=== PATIENT | female | born 1990 | race Caucasian/White ===

== ENCOUNTER 2018-01-13 12:01 | Emergency (ER) | payer MEDICAID ==
[2018-01-13 14:11] LABS: APPEARANCE,URINE SLIGHTLY-CLOUDY; BILIRUBIN,URINE NEGATIVE (NEGATIVE); COLOR,URINE YELLOW; GLUCOSE, URINE NEGATIVE (NEGATIVE); KETONES,URINE NEGATIVE (NEGATIVE); LEUKOCYTE ESTERASE,URINE MODERATE (NEGATIVE); NITRITE,URINE NEGATIVE (NEGATIVE); PROTEIN,URINE NEGATIVE (NEGATIVE); URINE SPECIFIC GRAVITY 1.015; UROBILINOGEN,URINE NEGATIVE mg/dL (<2.0)
--- NOTE | 2018-01-13 14:18 | ER Document Report ---
ED Medical Screen (RME) - General Chief Complaint: Vag Bleeding, +preg <12wks Stated Complaint: ABDOMINAL PAIN Time Seen by Provider: 01/13/18 12:18 Mode of Arrival: Ambulatory Information source: Patient Notes: 27-year-old female presents with complaint of one episode of vaginal bleeding. Patient states that 5 days ago she had a positive home test. Her last menstrual period was November 26, 2017. Patient has not had abdominal pain and currently states her bleeding has stopped. 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 I have greeted and performed a rapid initial assessment of this patient. A comprehensive ED assessment and evaluation of the patient, analysis of test results and completion of medical decision making process we will be contacted by additional ED providers. PHYSICAL EXAMINATION: GENERAL: Well-appearing, well-nourished and in no acute distress. HEAD: Atraumatic, normocephalic. EYES: Pupils equal round extraocular movements intact, conjunctiva are normal. ENT: Nares patent NECK: Normal range of motion LUNGS: No respiratory distress Musculoskeletal: Normal range of motion NEUROLOGICAL: Normal speech, normal gait. PSYCH: Normal mood, normal affect. SKIN: Warm, Dry, normal turgor, no rashes or lesions noted. TRAVEL OUTSIDE OF THE U[place] IN LAST 30 DAYS: No - HPI Onset: Yesterday Onset/Duration: Sudden, Gone Quality of pain: Cramping Severity: Mild Associated Symptoms: denies: Nausea Exacerbated by: Denies Relieved by: Denies Similar symptoms previously: No Recently seen / treated by doctor: No - Related Data Allergies/Adverse Reactions: amoxicillin Allergy (Intermediate, Verified 01/13/18 13:13) Hives Past Medical History - General Last Menstrual Period: 11/26/2017 - Social History Chew tobacco use (# tins/day): No Frequency of alcohol use: None Drug Abuse: None Renal/ Medical History: Denies: Hx Peritoneal Dialysis Physical Exam - Vital signs Vitals: Temp Pulse Resp BP Pulse Ox 98.7 F 71 16 141/69 H 100 01/13/18 12:28 01/13/18 12:28 01/13/18 12:28 01/13/18 12:28 01/13/18 12:28 Course - Vital Signs Vital signs: Temp Pulse Resp BP Pulse Ox 98.7 F 71 16 141/69 H 100 01/13/18 12:28 01/13/18 12:28 01/13/18 12:28 01/13/18 12:28 01/13/18 12:28 - Laboratory Laboratory results interpreted by me: 01/13/18 13:25 Urine Blood MODERATE H Ur Leukocyte Esterase MODERATE H Urine HCG, Qual POSITIVE H Doctor's Discharge - Discharge Referrals: CONVERSION,MAP [Primary Care Provider] - Follow up as needed
--- NOTE | 2018-01-13 14:35 | ER Document Report ---
ED General - General Chief Complaint: Vag Bleeding, +preg <12wks Stated Complaint: ABDOMINAL PAIN Time Seen by Provider: 01/13/18 12:18 Mode of Arrival: Ambulatory TRAVEL OUTSIDE OF THE [place] IN LAST 30 DAYS: No - HPI Notes: 27-year-old female at approximately 6 weeks gestation presents with an episode of vaginal bleeding yesterday. She was at work and suddenly felt a "gush of blood." She noticed about one quarter size blood clot. She does not believe it was enough to fill a pad. She has continued to have some brown discharge since that time. Denies any further bright red bleeding. Has intermittent cramping for the past few months, worse on the right. Has nausea without vomiting. Has not yet seen OB for this . No fevers or chills. No pain with urination. - Related Data Allergies/Adverse Reactions: amoxicillin Allergy (Intermediate, Verified 01/13/18 13:13) Hives Past Medical History - General Information source: Patient Last Menstrual Period: 11/26/2017 - Social History Smoking Status: Never Smoker Chew tobacco use (# tins/day): No Frequency of alcohol use: None Drug Abuse: None Family History: Reviewed & Not Pertinent Patient has suicidal ideation: No Patient has homicidal ideation: No Renal/ Medical History: Denies: Hx Peritoneal Dialysis Review of Systems - Review of Systems Notes: Constitutional: Negative for fever. HENT: Negative for sore throat. Eyes: Negative for visual changes. Cardiovascular: Negative for chest pain. Respiratory: Negative for shortness of breath. Gastrointestinal: Positive for abdominal pain and nausea, negative for vomiting or diarrhea. Genitourinary: Negative for dysuria. Positive for vaginal bleeding and discharge Musculoskeletal: Negative for back pain. Skin: Negative for rash. Neurological: Negative for headaches, weakness or numbness. 10 point ROS negative except as marked above and in HPI. Physical Exam - Vital signs Vitals: Temp Pulse Resp BP Pulse Ox 98.7 F 71 16 141/69 H 100 01/13/18 12:28 01/13/18 12:28 01/13/18 12:28 01/13/18 12:28 01/13/18 12:28 - Notes Notes: PHYSICAL EXAMINATION: GENERAL: Well-appearing, well-nourished and in no acute distress. HEAD: Atraumatic, normocephalic. EYES: Pupils equal round and reactive to light, extraocular movements intact, conjunctiva are normal. ENT: nares patent, oropharynx clear without exudates. Moist mucous membranes. NECK: Normal range of motion, supple without lymphadenopathy LUNGS: Breath sounds clear to auscultation bilaterally and equal. No wheezes rales or rhonchi. HEART: Regular rate and rhythm, no chest wall tenderness ABDOMEN: Soft, nontender, normoactive bowel sounds. No guarding, no rebound. No masses appreciated. : small amount of brown discharge in vaginal vault. Normal-appearing closed cervix without cervical motion tenderness EXTREMITIES: Normal range of motion, no pitting or edema. No cyanosis. NEUROLOGICAL: Cranial nerves grossly intact. Normal speech, normal gait. Normal sensory and motor exams. PSYCH: Normal mood, normal affect. SKIN: Warm, Dry, normal turgor, no rashes or lesions noted. Course - Re-evaluation Re-evalutation: 01/13/18 14:34 Pelvic ultrasound, type and screen, and quantitative hCG ordered. Pelvic swab sent. 01/13/18 15:34 4+ bacteria with white blood cells noted on wet prep. Will cover for bacterial vaginosis. Patient reports hives to amoxicillin. Given Zithromax for possible GC/Chlam. 01/13/18 16:38 Zithromax canceled as GC chlamydia came back negative. Still awaiting hCG and type and screen. Ultrasound shows gestational sac without evidence of pole. 01/13/18 18:33 Patient has remained comfortable with stable vital signs. HCG 9530. Blood type A+. Discussed with patient that we cannot rule out ectopic as only a gestational sac was seen on ultrasound. Discussed importance of repeat hCG and ultrasound in 48 hours to determine if there is an intrauterine present versus miscarriage versus ectopic. Given strict return precautions in the interim. Given information for the women's clinic to follow-up or to come back to the emergency department. Patient expressed understanding. At this time will discharge with return precautions and follow-up recommendations. Verbal discharge instructions given a the bedside and opportunity for questions given. Medication warnings reviewed. Patient is in agreement with this plan and has verbalized understanding of return precautions and the need for primary care follow-up in the next 24-72 hours. - Vital Signs Vital signs: Temp Pulse Resp BP Pulse Ox 98.7 F 71 16 141/69 H 100 01/13/18 12:28 01/13/18 12:28 01/13/18 12:28 01/13/18 12:28 01/13/18 12:28 - Laboratory Laboratory results interpreted by me: 01/13/18 01/13/18 13:25 17:04 Beta HCG, Quant 9530.60 H Urine Blood MODERATE H Ur Leukocyte Esterase MODERATE H Urine HCG, Qual POSITIVE H Discharge - Discharge Clinical Impression: Threatened miscarriage in early , Bacterial vaginosis Condition: Good Disposition: HOME, SELF-CARE Additional Instructions: It is impossible for us to determine if you have a viable , an early miscarriage, or possibly a tubal at this time. You must either follow -up with the women's clinic or the emergency department in 48 hours for repeat hCG level and ultrasound. You must return sooner if you have any severe pain, increased bleeding, passing out, or other concerns. Continue vitamins. Take Flagyl for bacterial vaginosis. : You are . care is best started as early in as possible. If you're unsure about continuing this , you should discuss this with your physician or with visitor use assistant at [facility]. You should take only medications approved by your physician. Acetaminophen can safely be taken for minor pains. As a rule, medication for chronic conditions such as asthma or seizures can safely be continued. You should discuss with the physician every medicine you take. Any regular exercise program can be continued. Talk to your physician, however, before engaging in competitive or demanding sports. Alcohol, smoking, and "street drugs" are dangerous to your baby. Cocaine is especially dangerous. Don't use any illicit drugs! BLEEDING DURING EARLY : You have been evaluated for passing blood while . While we take this symptom very seriously, most women with your degree of bleeding will go on to have a perfectly normal baby. At this time, there is no indication that a miscarriage will occur. (A miscarriage occurs when the fetus is abnormal. There is no medicine or treatment to prevent it.) A more serious cause of bleeding is tubal (or ectopic) . An ultrasound usually can show whether the is in the uterus or in the tube. Sometimes in early , no fetus is seen. In this case, careful follow-up, including repeat blood tests and repeat ultrasound, is necessary. Do not douche or have sex for at least a week, or until OK'd by the doctor. Don't use tampons. Call the doctor or return for re-examination if there is an increase in bleeding or cramping, extreme weakness, fainting, new abdominal pain, fever, or passage of tissue. THREATENED MISCARRIAGE: You have been evaluated for a possible miscarriage. At this time, there is no indication that a miscarriage will occur. Most women with your symptoms will go on to have a perfectly normal baby. However, careful observation will be necessary. A miscarriage occurs when the fetus is abnormal. There is no medicine or treatment for it. You should rest in bed until the symptoms have resolved. Do not douche or have sex for at least a week, or until OK'd by the doctor. Call the doctor or return for re-examination if there is an increase in bleeding or cramping, or passage of tissue. REPEAT BLOOD TEST: At this time, it is uncertain if you have a viable . During the first three months of , the hormone produced from the placenta will steadily rise, usually doubling in value every 2 - 3 days. In order to determine if your is viable and likely be succesful, a repeat of this blood test for the hormone is recommended in 2 - 3 days. An order for this test to be done as an outpatient is being provided. After you have this repeat test done, call your doctor or call us for the results. If the value of the test is increasing as would be expected in a normal , then your is likely to be ok. However, if the value of the test is declining, it will suggest something has happened with your and it will not likely be a successful . FOLLOW-UP CARE: If you have been referred to a physician for follow-up care, call the physician s office for an appointment as you were instructed or within the next two days. If you experience worsening or a significant change in your symptoms (very heavy bleeding with large clots of blood, passage of tissue, more severe abdominal / pelvic pain or cramping, feeling faint or severe weakness, fever, etc.), notify the physician immediately or return to the Emergency Department at any time for re-evaluation. OBSTETRIC-GYNECOLOGIC (OB-TEACHER OF THE HEARING IMPAIRED) PHYSICIANS IN [place]: [facility] [address] [place], [place] [phone] [facility] [address] [place] [address] [phone] For active duty and dependents diagnosed with a threatened or miscarriage, you should follow up in the following manner: Standard patients who have a local civilian provider should follow up with that provider. Patients of the Family Practice Clinic should call your Team Nurse at 8: 00 am the following morning for further instructions. If you are neither a Standard patient nor a patient of the Family Practice Clinic, you should follow up at the [facility] ([facility]) . Patients already enrolled in the [facility] OB Clinic, Prime patients not assigned to the Family Practice Clinic, and Active Duty patients not assigned to Family Practice Clinic should report to the [facility] Lab at 8:00 am the next morning that the [facility] is open and then you will be seen in the OB Clinic at 11:00 am. Prescriptions: Metronidazole [Flagyl 500 mg Tablet] 500 mg PO BID 7 Days #28 tablet Referrals: CONVERSION,MAP [CONVERSION] - Follow up as needed LO JAVED MD [ACTIVE STAFF] - 01/15/18
[2018-01-13 14:57] LABS: BACTERIA (WET MOUNT) 4+ BACTERIA SEEN; EPITHELIALS (WET MOUNT) 4+ EPITHELIALS SEEN; T.VAGINALIS (WET MOUNT) NO TRICHOMONAS SEEN; WBCS (WET MOUNT) 2+ WBCS SEEN; YEAST (WET MOUNT) NO YEAST SEEN
[2018-01-13] MEDS ORDERED: AZITHROMYCIN 250 MG TABLET PO ONE ×2 (15:32→15:36)
--- NOTE | 2018-01-13 16:03 | RADIOLOGY REPORT (SQ) ---
EXAM DESCRIPTION: U/S OB TRANSVAG W/DOPPLER COMPLETED DATE/TIME: 01/13/2018 3:54 pm REASON FOR STUDY: vaginal bleeding COMPARISON: None. TECHNIQUE: Transvaginal and transabdominal static and realtime grayscale images acquired of the pelv is. Additional selected spectral and color Doppler images recorded. All images stored on PACs. bHCG: Pending. LIMITATIONS: None. FINDINGS: UTERUS: No masses. No anomalies. GESTATIONAL SAC: Yes. YOLK SAC: No. POLE: No. RIGHT ADNEXA: Ovary not identified. No adnexal free fluid. No adnexal masses. LEFT ADNEXA: Normal ovary with normal vascular flow. No adnexal free fluid. No adnexal masses. FREE FLUID: None. OTHER: No other significant finding. IMPRESSION: POSSIBLE EARLY INTRAUTERINE . BHCG LEVEL NOT AVAILABLE FOR CORRELATION WITH US FINDINGS. CONSIDER F/U BHCG AND/OR ULTRASOUND FOR VERIFICATION AND TO EXCLUDE ECTOPIC . Trimester of : First - 0 to 13 weeks. TECHNICAL DOCUMENTATION: JOB ID: [id number] [employer]- All Rights Reserved Reading location - IP/workstation name: [email or web address]
[2018-01-13 16:24] LABS: CHLAM PCR NOT DETECTED (NOT DETECT); GON PCR NOT DETECTED (NOT DETECT)
[2018-01-13 18:53] VITALS: BP 125/67
== END 2018-01-13 18:53 | disposition home or self-care (01) ==
LOC: ER 12:01
DX: O20.0 Threatened abortion (principal); O23.591 Infection of other part of genital tract in pregnancy, first trimester; N76.0 Acute vaginitis; B96.89 Other specified bacterial agents as the cause of diseases classified elsewhere; O26.891 Other specified pregnancy related conditions, first trimester; R10.9 Unspecified abdominal pain; R11.0 Nausea; Z3A.01 Less than 8 weeks gestation of pregnancy
CPT/HCPCS: 36415; 76817; 81001; 81025; 84702; 86850; 86900; 86901; 87210; 87491; 87591; 93976; 99284

== ENCOUNTER 2018-01-19 08:07 | Emergency (ER) | payer SELFPAY ==
--- NOTE | 2018-01-19 08:41 | ER Document Report ---
HPI - HPI Patient complains to provider of: Recheck Onset: Last week Quality of pain: No pain Pain Level: 0 Context: Patient states that she is a and had a positive test. Patient states she was here recently with vaginal bleeding and pelvic cramping and was advised to return for repeat ultrasound and quantitative hCG test. Patient states she has had some occasional cramping, no vaginal bleeding, no dysuria symptoms. Patient has not followed up with an [facility] since her previous ER visit. Associated Symptoms: Other - Pelvic cramping Exacerbated by: Denies Relieved by: Denies Similar symptoms previously: No Recently seen / treated by doctor: Yes - ROS ROS below otherwise negative: Yes Systems Reviewed and Negative: Yes All other systems reviewed and negative - CONSTITUTIONAL Constitutional: DENIES: Fever - GASTROINTESTINAL Gastrointestinal: REPORTS: Abdominal Pain. DENIES: Nausea, Patient vomiting - URINARY Urinary: DENIES: Dysuria, Urgency, Frequency - REPRODUCTIVE Reproductive: REPORTS: :. DENIES: Abnormal bleeding / discharge - MUSCULOSKELETAL Musculoskeletal: DENIES: Back Pain Past Medical History - General Information source: Patient - Social History Smoking Status: Never Smoker Frequency of alcohol use: None Drug Abuse: None Occupation: [employer] Lives with: Spouse/Significant other Family History: Reviewed & Not Pertinent - Medical History Medical History: Negative Renal/ Medical History: Denies: Hx Peritoneal Dialysis Surgical Hx: Negative Vertical Provider Document - CONSTITUTIONAL Agree With Documented VS: Yes Exam Limitations: No Limitations General Appearance: WD/WN, No Apparent Distress - INFECTION CONTROL TRAVEL OUTSIDE OF THE [place] IN LAST 30 DAYS: No - HEENT HEENT: Atraumatic, Normocephalic - NECK Neck: Normal Inspection, Supple - RESPIRATORY Respiratory: Breath Sounds Normal, No Respiratory Distress - CARDIOVASCULAR Cardiovascular: Regular Rate, Regular Rhythm - GI/ABDOMEN Gastrointestinal: Abdomen Soft, Abdomen Non-Tender, No Organomegaly, Normal Bowel Sounds - BACK Back: Normal Inspection. negative: CVA Tenderness-Right, CVA Tenderness-Left - MUSCULOSKELETAL/EXTREMETIES Musculoskeletal/Extremeties: COMFORT VELÁSQUEZ - NEURO Level of Consciousness: Awake, Alert, Appropriate Motor/Sensory: No Motor Deficit - DERM Integumentary: Warm, Dry, No Rash Course - Re-evaluation Re-evalutation: 01/19/18 Patient without any pelvic cramping, vaginal bleeding or back pain. Patient with positive intrauterine noted on ultrasound with upward trending quantitative hCG test. Patient encouraged to follow-up with health department to establish care. - Vital Signs Vital signs: Temp Pulse Resp BP Pulse Ox 98.3 F 73 12 117/69 99 01/19/18 08:13 01/19/18 08:13 01/19/18 08:13 01/19/18 08:13 01/19/18 08:13 - Laboratory Laboratory results interpreted by me: 01/19/18 12:38 Labs- Entire Visit 01/19/18 11:05 Beta HCG, Quant 00790.00 H Total Beta HCG POSITIVE Reviewed previous ER visits laboratory tests - Diagnostic Test Radiology reviewed: Reports reviewed Discharge - Discharge Clinical Impression: Intrauterine Condition: Stable Disposition: HOME, SELF-CARE Instructions: ([facility]) Additional Instructions: Return immediately for any new or worsening symptoms Followup with your primary care provider, call tomorrow to make a followup appointment Follow-up with the health department to establish care. Forms: Return to Work [facility] - Follow up as needed
--- NOTE | 2018-01-19 10:25 | RADIOLOGY REPORT (SQ) ---
EXAM DESCRIPTION: U/S OB TRANSVAGINAL W/O DOP COMPLETED DATE/TIME: 01/19/2018 10:08 am REASON FOR STUDY: pelvic pain COMPARISON: 01/13/2018 TECHNIQUE: Transvaginal static and realtime grayscale images acquired of the pelvis. Additional ludy cted spectral and color Doppler images recorded. All images stored on PACs. [id number] LIMITATIONS: None. FINDINGS: FETUS: Living intrauterine . ULTRASOUND EGA: 6 weeks 5 days ULTRASOUND FAITH: 09/19/2017 CRL: 0.7 cm FHR: 113 beats per minute. SUBCHORIONIC BLEED: None SIZE OF BLEED: Not applicable. UTERUS: No masses. No anomalies. Measures 8.8 x 4.7 x 5.1 cm CERVICAL LENGTH: 2.7 cm Closed. RIGHT ADNEXA: Normal ovary with normal vascular flow. Measures 2.3 x 2.4 x 2.8 cm No adnexal free fluid. No adnexal masses. LEFT ADNEXA: Normal ovary with normal vascular flow. Measures 3.1 x 2.4 x 2.9 cm No adnexal free fluid. No adnexal masses. FREE FLUID: None. OTHER: No other significant finding. IMPRESSION: LIVING INTRAUTERINE . EGA 6 weeks 5 days with an estimated date of delivery 09/19/2017. Trimester of : First - 0 to 13 weeks. TECHNICAL DOCUMENTATION: JOB ID: [id number] [employer]- All Rights Reserved rev-10/19 Reading location - IP/workstation name: [email or web address]
[2018-01-19 12:35] VITALS: BP 108/62
== END 2018-01-19 12:48 | disposition home or self-care (01) ==
LOC: ER 08:07
DX: O26.899 Other specified pregnancy related conditions, unspecified trimester (principal); R10.2 Pelvic and perineal pain
CPT/HCPCS: 36415; 76817; 84702; 99284